=== PATIENT | female | born 1995 | race Caucasian/White ===

== ENCOUNTER 2017-12-17 19:32 | Emergency (ER) | payer OTHER ==
[2017-12-17 21:52] LABS: Urine Blood NEGATIVE (NEG); Urine Glucose NEGATIVE (NEG); Urine Protein NEGATIVE (NEG); Urine Specific Gravity >1.030 (1.005-1.030)
[2017-12-17 21:56] LABS: Urine Bacteria <20 /HPF (<20); Urine Culture Reflex Order NOT NEEDED; Urine Mucus 2+ /HPF (NONE SEEN); Urine RBC NONE SEEN /HPF (NONE SEEN)
--- NOTE | 2017-12-17 23:10 | ER ---
Nurse's Notes [facility] Name: Silva Campos Age: 22 yrs Sex: Female : 1995 Arrival Date: 12/17/2017 Time: 19:33 Bed 20 Private MD: Diagnosis: Lower abdominal pain, unspecified Presentation: 12/17 19:40 Presenting complaint: Patient states: Patient sharp suprapubic pain that started on the ea 12/10/17, patient reports taking Clomid and noticed symptoms started on fourth day of taking medication. "Today the pain was constant and did not go away". Transition of care: patient was not received from another setting of care. Onset of symptoms. Onset of symptoms was December 17, 2017. Care prior to arrival: None. 19:40 Method Of Arrival: Ambulatory ea 19:40 Acuity: YVONNE 3 ea Triage Assessment: 19:47 Pain: Complains of pain in left lower quadrant Pain radiates to suprapubic area and ea right lower quadrant Pain currently is 7 out of 10 on a pain scale. Quality of pain is described as "feel like contractions" Is continuous. Neuro: Level of Consciousness is awake, alert, obeys commands, Oriented to person, place, time, situation. GI: Reports lower abdominal pain, diarrhea, nausea, patient reports diarrhea one time this morning. 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 - Social history:: Smoking status: Patient/guardian denies using tobacco. Screenin:57 Abuse screen: Denies threats or abuse. Nutritional screening: No deficits noted. jd3 Tuberculosis screening: No symptoms or risk factors identified. Fall Risk None identified. Assessment: 21:23 General: Appears in no apparent distress. uncomfortable, Behavior is calm, cooperative, jd3 appropriate for age. Pain: Complains of pain in suprapubic area Quality of pain is described as aching, sharp. Neuro: Level of Consciousness is awake, alert, obeys commands, Oriented to person, place, time, situation. Cardiovascular: Heart tones S1 S2 present Capillary refill < 3 seconds Patient's skin is warm and dry. Respiratory: Airway is patent Respiratory effort is even, unlabored, Respiratory pattern is regular, symmetrical, Breath sounds are clear bilaterally. GI: Abdomen is round Bowel sounds present X 4 quads. Abd is soft Abdomen is tender to palpation in suprapubic area and left lower quadrant Reports nausea. : No signs and/or symptoms were reported regarding the genitourinary system. EENT: No signs and/or symptoms were reported regarding the EENT system. Derm: Skin is intact, Skin is dry, Skin is normal, Skin temperature is warm. Musculoskeletal: Circulation, motion, and sensation intact. Range of motion: intact in all extremities. 22:57 Reassessment: Patient appears in no apparent distress at this time. No changes from jd3 previously documented assessment. Patient and/or family updated on plan of care and expected duration. Pain level reassessed. Patient is alert, oriented x 3, equal unlabored respirations, skin warm/dry/pink. Vital Signs: 19:39 BP 126 / 85; Pulse 93; Resp 18; Temp 98.7; Pulse Ox 100% ; Weight 79.38 kg (R); Height ea 4 ft. 11 in. (149.86 cm); Pain 7/10; 22:56 BP 119 / 69; Pulse 83; Resp 17 S; Pulse Ox 97% on R/A; jd3 19:39 Body Mass Index 35.35 (79.38 kg, 149.86 cm) ea ED Course: 19:33 Patient arrived in ED. ds1 19:44 Triage completed. ea 20:53 Aaliyah Linder F[facility]-C [facility] snw 20:53 Jaquan Wiggins MD is Attending Physician. snw 21:21 Edi Perdue RN is Primary Nurse. jd3 22:37 Ultrasound completed. Patient tolerated well. cy 22:57 Patient has correct armband on for positive identification. Bed in low position. Call jd3 light in reach. Side rails up X 1. 22:58 Arm band placed on. jd3 23:28 No provider procedures requiring assistance completed. Patient did not have IV access jd3 during this emergency room visit. Administered Medications: No medications were administered Outcome: 23:09 Discharge ordered by . snw 23:29 Discharged to home ambulatory. jd3 23:29 Condition: stable 23:29 Discharge instructions given to patient, Instructed on discharge instructions, follow up and referral plans. medication usage, Demonstrated understanding of instructions, follow-up care, medications, Prescriptions given X 1. 23:29 Patient left the ED. leonel Signatures: Aaliyah Linder, HOUSEKEEPING LEAD-C HOUSEKEEPING LEAD-Csnw Esther Ferrari ds1 Cesilia Ramon RN RN ea Davies, Jonathon, RN RN jd3 Yong, Chheannith cy Corrections: (The following items were deleted from the chart) 19:54 19:40 Acuity: YVONNE 4 ea ea
--- NOTE | 2017-12-17 23:10 | EDPHYS ---
Physician Documentation [facility] Name: Silva Campos Age: 22 yrs Sex: Female : 1995 Arrival Date: 12/17/2017 Time: 19:33 Bed 20 Private MD: ED Physician Jaquan Wiggins HPI: 12/17 21:51 This 22 yrs old Female presents to ER via Ambulatory with complaints of snw Abdominal Pain - Low. 21:51 The patient presents with abdominal pain in the lower abdomen. Onset: The snw symptoms/episode began/occurred suddenly, 1 week(s) ago, and became worse today, and became persistent. The symptoms do not radiate. Associated signs and symptoms: Pertinent positives: denies vomiting, fever, bleeding. The symptoms are described as crampy, sharp. Severity of pain: At its worst the pain was moderate. The patient has not experienced similar symptoms in the past. The patient has not recently seen a physician. pt taking Clomid, last taken three years ago. Symptoms not the same as the past episode. 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 - Social history:: Smoking status: Patient/guardian denies using tobacco. ROS: 21:49 Constitutional: Negative for fever, chills, and weight loss, Eyes: Negative for injury, snw pain, redness, and discharge, ENT: Negative for injury, pain, and discharge, Neck: Negative for injury, pain, and swelling, Cardiovascular: Negative for chest pain, palpitations, and edema, Respiratory: Negative for shortness of breath, cough, wheezing, and pleuritic chest pain, Abdomen/GI: Negative for nausea, vomiting, diarrhea, and constipation, + lower abdominal pain Back: Negative for injury and pain, : Negative for injury, bleeding, discharge, and swelling, MS/Extremity: Negative for injury and deformity, Skin: Negative for injury, rash, and discoloration, Neuro: Negative for headache, weakness, numbness, tingling, and seizure. Exam: 21:49 Constitutional: This is a well developed, well nourished patient who is awake, alert, snw and in no acute distress. Head/Face: Normocephalic, atraumatic. Eyes: Pupils equal round and reactive to light, extra-ocular motions intact. Lids and lashes normal. Conjunctiva and sclera are non-icteric and not injected. Cornea within normal limits. Periorbital areas with no swelling, redness, or edema. ENT: Nares patent. No nasal discharge, no septal abnormalities noted. Tympanic membranes are normal and external auditory canals are clear. Oropharynx with no redness, swelling, or masses, exudates, or evidence of obstruction, uvula midline. Mucous membranes moist. Neck: Trachea midline, no thyromegaly or masses palpated, and no cervical lymphadenopathy. Supple, full range of motion without nuchal rigidity, or vertebral point tenderness. No Meningismus. Chest/axilla: Normal chest wall appearance and motion. Nontender with no deformity. No lesions are appreciated. Cardiovascular: Regular rate and rhythm with a normal S1 and S2. No gallops, murmurs, or rubs. Normal PMI, no JVD. No pulse deficits. Respiratory: Lungs have equal breath sounds bilaterally, clear to auscultation and percussion. No rales, rhonchi or wheezes noted. No increased work of breathing, no retractions or nasal flaring. Back: No spinal tenderness. No costovertebral tenderness. Full range of motion. Skin: Warm, dry with normal turgor. Normal color with no rashes, no lesions, and no evidence of cellulitis. MS/ Extremity: Pulses equal, no cyanosis. Neurovascular intact. Full, normal range of motion. Neuro: Awake and alert, GCS 15, oriented to person, place, time, and situation. Cranial nerves II-XII grossly intact. Motor strength 5/5 in all extremities. Sensory grossly intact. Cerebellar exam normal. Normal gait. 21:49 Abdomen/GI: Inspection: obese Bowel sounds: normal, Palpation: mild abdominal tenderness, moderate abdominal tenderness, in the suprapubic area, right lower quadrant and left lower quadrant. Vital Signs: 19:39 BP 126 / 85; Pulse 93; Resp 18; Temp 98.7; Pulse Ox 100% ; Weight 79.38 kg (R); Height ea 4 ft. 11 in. (149.86 cm); Pain 7/10; 22:56 BP 119 / 69; Pulse 83; Resp 17 S; Pulse Ox 97% on R/A; jd3 19:39 Body Mass Index 35.35 (79.38 kg, 149.86 cm) ea MDM: 20:54 Patient medically screened. snw 23:10 Data reviewed: vital signs, nurses notes. Data interpreted: Pulse oximetry: on room air snw is 97 %. Interpretation: normal. Counseling: I had a detailed discussion with the patient and/or guardian regarding: the historical points, exam findings, and any diagnostic results supporting the discharge/admit diagnosis, lab results, radiology results, the need for outpatient follow up, to return to the emergency department if symptoms worsen or persist or if there are any questions or concerns that arise at home. Special discussion: Based on the history and exam findings, there is no indication for further emergent testing or inpatient evaluation. I discussed with the patient/guardian the need to see the OB Gyne specialist for further evaluation of the symptoms. I discussed with the patient/guardian the need to see the primary care provider for further evaluation of the symptoms. 12/17 20:54 Order name: Urine Microscopic Only snw 12/17 21:45 Order name: Urine Dipstick--Ancillary (enter results) [facility] 12/17 21:45 Order name: Urine --Ancillary (enter results) [facility] 12/17 21:52 Order name: Urine --Ancillary; Complete Time: 21:56 EDMS 12/17 21:52 Order name: Urine Dipstick-Ancillary; Complete Time: 21:56 EDMS 12/17 21:56 Order name: Urine Microscopic Only; Complete Time: 21:57 EDMS 12/17 20:54 Order name: Urine Test (obtain specimen); Complete Time: 21:44 snw 12/17 20:54 Order name: Urine Dipstick-Ancillary (obtain specimen); Complete Time: 21:44 snw 12/17 21:48 Order name: US Transvaginal Study (Probe) snw Administered Medications: No medications were administered Disposition: 12/18 06:20 Co-signature as Attending Physician, Jaquan Wiggins MD. Disposition: 12/17/17 23:09 Discharged to Home. Impression: Lower abdominal pain, unspecified. - Condition is Stable. - Discharge Instructions: Abdominal Pain, Women. - Prescriptions for Bentyl 20 mg Oral Tablet - take 1 tablet by ORAL route every 6 hours As needed; 20 tablet. - Medication Reconciliation Form, Thank You Letter, Antibiotic Education, Prescription Opioid Use form. - Follow up: Private Physician; When: 2 - 3 days; Reason: Recheck today's complaints, Continuance of care, Re-evaluation by your physician. Follow up: Emergency Department; When: As needed; Reason: Worsening of condition. Signatures: Dispatcher [employer] EDMS Aaliyah Linder, LABOR AND DELIVERY REGISTERED NURSE-C LABOR AND DELIVERY REGISTERED NURSE-Csnw Cesilia Ramon, RN RN Jaquan Carrasquillo MD MD gs Davies, Jonathon RN RN jd3
--- NOTE | 2017-12-18 09:27 | RAD REPORT ---
EXAM DESCRIPTION: US - Transvaginal Study Probe - 12/17/2017 10:33 pm CLINICAL HISTORY: Abdominal pain, pelvic pain Preliminary findings provided at the time of the study. COMPARISON: None. TECHNIQUE: Endovaginal sonography was performed. FINDINGS: Endometrium is 8 mm in thickness. No endometrial mass or polyp identifiable. Uterus is 8.2 x 4.3 x 3.8 cm. No solid mass of the myometrium. Along the anterior cervix there is a 15 millimeter anechoic cyst identified. This is believed to be a large nabothian cyst. This is not felt to be of ac [place] clinical significance. Both ovaries are identified. Right ovary is 2.6 x 0.9 x 2.1 cm. Left ovary is 3.3 x 2.9 x 2.6 cm. Lef t ovary is enlarged by a 3.3 centimeter thin-walled anechoic cyst. Doppler evaluation shows blood moy w in the bilateral ovarian stroma. Torsion is not suspected. No adnexal mass or free fluid. IMPRESSION: Left ovary contains a 3.3 centimeter benign-appearing cyst. Blood flow is demonstrated in both ovaries. Torsion is not suspected.
== END 2017-12-17 23:29 | disposition home or self-care (01) ==
LOC: ER 19:32
DX: Z91.040 Latex allergy status; R10.30 Lower abdominal pain, unspecified
CPT/HCPCS: 76830; 81003; 81015; 81025; 99282

== ENCOUNTER 2018-01-15 16:34 | Emergency (ER) | payer OTHER ==
[2018-01-15 17:59] LABS: Urine Bacteria <20 /HPF (<20); Urine RBC <5 /HPF (NONE SEEN)
[2018-01-15 18:00] LABS: Urine Amorphous Sediment 2+ /HPF (NONE SEEN); Urine Culture Reflex Order NOT NEEDED
[2018-01-15] MEDS ORDERED: METOCLOPRAMIDE 10 MG/2mL INJ ONE (18:07)
[2018-01-15] MEDS ORDERED: DEXAMETHASONE 10 MG/ML VIAL ONE (18:07)
[2018-01-15] MEDS ORDERED: NA CHLORIDE 0.9% 1,000 ML ONE (18:08)
[2018-01-15] MEDS ORDERED: DIPHENHYDRAMINE 50 MG/ML VIAL ONE (18:08)
[2018-01-15 18:32] LABS: Absolute Lymphocytes (CBC) 2.3 K/uL (0.7-4.9); Absolute Monocytes 0.6 K/uL (0.1-1.3); Absolute Neutrophil 5.6 K/uL (1.8-8.0); Basophils % 0.6 % (0-1.3); Eosinophils % 0.7 % (0-4.4); Lymphocytes % 26.1 % (15.3-44.8); MCH 30.3 pg (27.0-35.0); MCV 89.6 fL (80-100); MPV 9.1 fL (7.6-11.3); Monocytes % 7.4 % (3.3-12.3); RBC Red Blood Cell Count 4.35 M/uL (3.86-4.86)
[2018-01-15 18:41] LABS: Protime INR 0.96
[2018-01-15 18:59] LABS: BUN Blood Urea Nitrogen 15 mg/dL (6-20); Bicarbonate 28 mEq/L (21-31); Glucose Level 115 mg/dL (65-120); Potassium 3.9 mEq/L (3.6-5.0); Sodium Level 138 mEq/L (135-145)
[2018-01-15 19:12] LABS: Urine Blood NEGATIVE (NEG); Urine Glucose NEGATIVE (NEG); Urine Protein NEGATIVE (NEG); Urine Specific Gravity 1.025 (1.005-1.030); Urine pH 7.5 (5.0-7.0)
--- NOTE | 2018-01-15 19:53 | EDPHYS ---
Physician Documentation [facility] Name: Silva Campos Age: 23 yrs Sex: Female : 1995 Arrival Date: 01/15/2018 Time: 17:01 Bed 5 Private MD: ED Physician Yusuf Guillaume HPI: 01/15 17:30 This 23 yrs old Female presents to ER via Ambulatory with complaints of SHARP cp PAIN ON LEFT SIDE OF HEAD. 17:30 The patient complains of pain to the left latter-day and left temporal area. cp 17:30 The patient describes the headache as sharp. Onset: The symptoms/episode began/occurred cp 5 day(s) ago. Associated signs and symptoms: Pertinent positives: Photophobia Pertinent negatives: altered mental status, fever, neck stiffness, sinus congestion, sinus tenderness, vomiting, weakness, vertigo. Severity of symptoms: in the emergency department the pain is unchanged, despite home interventions. Headache History: The patient has had previous headaches and this one is different than previous episodes, and this one is less severe than previous episodes. Patient reports she was referred to ED from [place] today after having normal head CT. 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 - Social history:: Smoking status: Patient/guardian denies using tobacco. ROS: 17:42 Constitutional: Negative for body aches, chills, fever, poor PO intake. cp 17:42 Eyes: Negative for injury, pain, redness, and discharge. cp 17:42 ENT: Negative for drainage from ear(s), ear pain, rhinorrhea, sore throat, difficulty swallowing, difficulty handling secretions, hoarseness. 17:42 Cardiovascular: Negative for chest pain, edema, palpitations. 17:42 Respiratory: Negative for cough, shortness of breath, wheezing. 17:42 Abdomen/GI: Negative for abdominal pain, vomiting, diarrhea, constipation. 17:42 Back: Negative for pain at rest, pain with movement. 17:42 : Negative for urinary symptoms. 17:42 Skin: Negative for cellulitis, rash. 17:42 Neuro: Positive for headache, Negative for altered mental status, weakness. 17:42 All other systems are negative. Exam: 17:48 Constitutional: The patient appears in no acute distress, alert, awake, non-toxic, well cp developed, well nourished. 17:48 Head/face: Noted is no obvious of injury or deformity except tenderness, that is mild, cp of the left latter-day, left temporal area and left occipital area, Sinus tenderness, is not appreciated. 17:48 Eyes: Periorbital structures: appear normal, Pupils: equal, round, and reactive to light and accomodation, Extraocular movements: intact throughout, Conjunctiva: normal, no exudate, no injection, Sclera: no appreciated abnormality, Lids and lashes: appear normal, bilaterally, Visual flowers: are intact. 17:48 ENT: External ear(s): are unremarkable, Ear canal(s): are normal, clear, TM's: bulging, is not appreciated, bilaterally, dullness, bilaterally, erythema, is not appreciated, bilaterally, Nose: is normal, Mouth: Lips: moist, Oral mucosa: pink and intact, moist, Posterior pharynx: is normal, airway is patent, no erythema, no exudate, Dental exam: normal, no dental caries, no fractured teeth, no gum swelling, no missing teeth, no pain, Voice: is normal. 17:48 Neck: External neck: is normal, ROM/movement: is normal, is supple, without pain, no range of motions limitations, no meningismus, no nuchal rigidity, Lymph nodes: no appreciated lymphadenopathy. 17:48 Chest/axilla: Inspection: normal, Palpation: is normal, no crepitus, no tenderness. 17:48 Cardiovascular: Rate: normal, Rhythm: regular, JVD: is not appreciated. 17:48 Respiratory: the patient does not display signs of respiratory distress, Respirations: normal, no use of accessory muscles, no retractions, no splinting, no tachypnea, labored breathing, is not present, Breath sounds: are clear throughout, no decreased breath sounds, no stridor, no wheezing. 17:48 Abdomen/GI: Inspection: abdomen appears normal, Bowel sounds: active, all quadrants, Palpation: abdomen is soft and non-tender, in all quadrants, rebound tenderness, is not appreciated, voluntary guarding, is not appreciated, involuntary guarding, is not appreciated. 17:48 Back: pain, is absent, ROM is normal. 17:48 Skin: cellulitis, is not appreciated, no rash present. 17:48 Neuro: Orientation: to person, place \T\ time. Mentation: lucid, able to follow commands, Cerebellar function: is grossly normal, Motor: moves all fours, strength is normal, Sensation: no obvious gross deficits. Vital Signs: 17:09 BP 126 / 74; Pulse 75; Resp 16; Temp 98.4; Pulse Ox 99% on R/A; Weight 77.11 kg; Height hb 4 ft. 11 in. (149.86 cm); Pain 8/10; 18:06 BP 102 / 67; Pulse 59; Resp 17; Pulse Ox 100% on R/A; tw2 19:11 BP 95 / 59; Pulse 55; Resp 18; Pulse Ox 98% on R/A; tl2 20:15 BP 110 / 74; Pulse 88; Resp 18; Pulse Ox 100% on R/A; Pain 5/10; tl2 17:09 Body Mass Index 34.34 (77.11 kg, 149.86 cm) hb MDM: 17:25 Patient medically screened. cp 18:00 Differential diagnosis: cluster headache, meningitis, migraine, neoplasm, sinusitis, cp subarachnoid bleed, subdural hematoma, temporal arteritis, tension headache. 19:25 Data reviewed: vital signs, nurses notes, lab test result(s). cp 19:48 Counseling: I had a detailed discussion with the patient and/or guardian regarding: the cp historical points, exam findings, and any diagnostic results supporting the discharge/admit diagnosis, lab results, the need for outpatient follow up, a neurologist, to return to the emergency department if symptoms worsen or persist or if there are any questions or concerns that arise at home. 19:48 Response to treatment: improved, and as a result, I will discharge patient. cp 01/15 17:19 Order name: Urine Microscopic Only; Complete Time: 18:58 jb1 01/15 18:58 Interpretation: Normal except: SQEPI 10-20; AMORPH 2+. cp 01/15 17:19 Order name: Urine Culture jb 01/15 17:21 Order name: Urine Dipstick--Ancillary (enter results); Complete Time: 19:17 iw 01/15 19:17 Interpretation: Normal except: UPH 7.5; UESTR TRACE. cp 01/15 17:21 Order name: Urine --Ancillary (enter results); Complete Time: 19:17 iw 01/15 17:50 Order name: CBC with Diff; Complete Time: 18:58 cp 01/15 18:58 Interpretation: Reviewed. cp 01/15 17:50 Order name: BMP; Complete Time: 19:17 cp 01/15 19:18 Interpretation: Reviewed. cp 01/15 17:50 Order name: PT-INR; Complete Time: 18:58 cp 01/15 17:50 Order name: Ptt, Activated; Complete Time: 18:58 cp 01/15 18:26 Order name: IV Start; Complete Time: 18:26 tw2 Administered Medications: 18:20 Drug: Benadryl 25 mg Route: IVP; Site: left antecubital; tw2 18:53 Follow up: Response: No adverse reaction; Pain is unchanged, physician notified tw2 18:22 Drug: Decadron - Dexamethasone 10 mg Route: IVP; Site: left antecubital; tw2 18:54 Follow up: Response: No adverse reaction tw2 18:24 Drug: Reglan 10 mg Route: IVP; Site: left antecubital; tw2 18:54 Follow up: Response: No adverse reaction tw2 18:25 Drug: NS 0.9% 1000 ml Route: IV; Rate: 1 bolus; Site: left antecubital; tw2 20:18 Follow up: IV Status: Completed infusion; IV Intake: 1000ml tl2 Disposition: 21:00 Chart complete. cp Disposition: 01/15/18 19:52 Discharged to Home. Impression: Headache. - Condition is Stable. - Discharge Instructions: General Headache Without Cause. - Prescriptions for Fiorinal 50- 325-40 mg Oral Capsule - take 1 capsule by ORAL route every 4 hours As needed - not to exceed 6 capsules per day; 20 capsule. promethazine 25 mg Oral Tablet - take 1 tablet by ORAL route every 6 hours As needed; 20 tablet. - Medication Reconciliation Form, Thank You Letter, Antibiotic Education, Prescription Opioid Use form. - Follow up: Josesito Landa MD; When: 2 - 3 days; Reason: Recheck today's complaints. - Problem is new. - Symptoms have improved. Addendum: 01/30/2018 19:55 Co-signature as Attending Physician, Yusuf Guillaume MD I agree with the assessment and k dr plan of care. Signatures: Dispatcher [employer] EDAK Yusuf Guillaume MD MD [facility] Jamaal Herbert PA PA cp Isidra Jones RN RN Brianna Rodriguez RN RN 2 Beth Berg RN RN tl2 Corrections: (The following items were deleted from the chart) 01/15 20:18 19:52 01/15/2018 19:52 Discharged to Home. Impression: Headache. Condition is Stable. tl2 Forms are Medication Reconciliation Form, Thank You Letter, Antibiotic Education, Prescription Opioid Use. Follow up: Josesito Landa; When: 2 - 3 days; Reason: Recheck today's complaints. Problem is new. Symptoms have improved. cp 01/16 19:55 17:42 Constitutional: Negative for body aches, chills, fever, poor PO intake, cp cp 19:55 17:42 Eyes: Negative for injury, pain, redness, and discharge, cp cp 19:55 17:42 Cardiovascular: Negative for chest pain, edema, palpitations, cp cp 19:55 17:42 Respiratory: Negative for cough, shortness of breath, wheezing, cp cp 19:55 17:42 Neck: Negative for pain with movement, pain at rest, stiffness, cp cp 19:55 17:42 ENT: Negative for drainage from ear(s), ear pain, rhinorrhea, sore throat, cp difficulty swallowing, difficulty handling secretions, cp 19:55 17:42 Abdomen/GI: Negative for abdominal pain, vomiting, diarrhea, constipation, cp cp 19:55 17:42 Back: Negative for pain at rest, pain with movement, cp cp 19:55 17:42 Skin: Negative for cellulitis, rash, cp cp 19:55 17:42 Neuro: Positive for headache, Negative for altered mental status, weakness, cp cp 19:55 17:42 All other systems are negative, cp cp
--- NOTE | 2018-01-15 19:53 | ER ---
Nurse's Notes [facility] Name: Silva Campos Age: 23 yrs Sex: Female : 1995 Arrival Date: 01/15/2018 Time: 17:01 Bed 5 Private MD: Diagnosis: Headache Presentation: 01/15 17:07 Presenting complaint: Patient states: Left sided headache, dizziness, and hb photosensitivity x 5 days. Denies N/V/fever. Transition of care: patient was not received from another setting of care. Onset of symptoms is unknown. Care prior to arrival: Medication(s) given: Motrin, at 1100 today. 17:07 Method Of Arrival: Ambulatory hb 17:07 Acuity: YVONNE 3 hb 17:12 Initial Sepsis Screen: Does the patient meet any 2 criteria? No. Patient's initial tw2 sepsis screen is negative. Does the patient have a suspected source of infection? No. Patient's initial sepsis screen is negative. 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 - Social history:: Smoking status: Patient/guardian denies using tobacco. Screenin:12 Abuse screen: Denies threats or abuse. Nutritional screening: No deficits noted. tw2 Tuberculosis screening: No symptoms or risk factors identified. Fall Risk None identified. Assessment: 17:20 Reassessment: pt states" i was just at [facility], they did a CT which was negative, but tw2 they couldn't do blood work, and they said it was not an ear infection". 17:20 General: Appears in no apparent distress. obese, well groomed, Behavior is calm, tw2 cooperative, appropriate for age. Pain: Complains of pain in left temporal area, left ear and left cheek. Neuro: Level of Consciousness is awake, alert, obeys commands, Oriented to person, place, time, situation. Neuro: Reports headache in right temportal, down around right ear and right jaw, pt states she does wear a mouth guard at night for grinding. photophobia. Cardiovascular: Denies chest pain, shortness of breath, Heart tones S1 S2 Capillary refill < 3 seconds Patient's skin is warm and dry. Respiratory: Airway is patent Respiratory effort is even, unlabored, Respiratory pattern is regular, symmetrical, Breath sounds are clear bilaterally. GI: No signs and/or symptoms were reported involving the gastrointestinal system. Abdomen is round obese, Bowel sounds present X 4 quads. : No signs and/or symptoms were reported regarding the genitourinary system. EENT: No signs and/or symptoms were reported regarding the EENT system. Derm: No signs and/or symptoms reported regarding the dermatologic system. Musculoskeletal: Range of motion: intact in all extremities. 18:06 Reassessment: Patient appears in no apparent distress at this time. No changes from tw2 previously documented assessment. Patient and/or family updated on plan of care and expected duration. Pain level reassessed. Patient is alert, oriented x 3, equal unlabored respirations, skin warm/dry/pink. 18:53 Reassessment: Patient appears in no apparent distress at this time. Patient and/or tw2 family updated on plan of care and expected duration. Pain level reassessed. Patient is alert, oriented x 3, equal unlabored respirations, skin warm/dry/pink. provider notified. Patient states symptoms have not improved. 19:46 Reassessment: Patient appears in no apparent distress at this time. Patient and/or tl2 family updated on plan of care and expected duration. Pain level reassessed. Patient is alert, oriented x 3, equal unlabored respirations, skin warm/dry/pink. Pt ambulatory to restroom, awaiting further orders. 20:15 Reassessment: Patient appears in no apparent distress at this time. Patient and/or tl2 family updated on plan of care and expected duration. Pain level reassessed. Patient is alert, oriented x 3, equal unlabored respirations, skin warm/dry/pink. Pt verbalized understanding of discharge instructions, need for follow up and prescription usage Patient states feeling better. Vital Signs: 17:09 BP 126 / 74; Pulse 75; Resp 16; Temp 98.4; Pulse Ox 99% on R/A; Weight 77.11 kg; Height hb 4 ft. 11 in. (149.86 cm); Pain 8/10; 18:06 BP 102 / 67; Pulse 59; Resp 17; Pulse Ox 100% on R/A; tw2 19:11 BP 95 / 59; Pulse 55; Resp 18; Pulse Ox 98% on R/A; tl2 20:15 BP 110 / 74; Pulse 88; Resp 18; Pulse Ox 100% on R/A; Pain 5/10; tl2 17:09 Body Mass Index 34.34 (77.11 kg, 149.86 cm) hb ED Course: 17:01 Patient arrived in ED. al2 17:08 Triage completed. hb 17:09 Arm band placed on left wrist. hb 17:12 Bed in low position. Call light in reach. Pulse ox on. NIBP on. tw2 17:18 Urine collected: clean catch specimen, cloudy, sommer colored. jb1 17:19 Brianna Rodriguez RN is Primary Nurse. tw2 17:24 Jamaal Herbert PA is PHCP. cp 17:24 Yusuf Guillaume MD is Attending Physician. cp 18:15 Missed attempt(s): 22 gauge in right antecubital area. per Karina Lyle. Bleeding tw2 controlled, band aid applied, catheter tip intact. 18:20 No provider procedures requiring assistance completed. Inserted saline lock: 22 gauge tw2 in left antecubital area, using aseptic technique. Blood collected. 19:00 Report given to MADELAINE Jacobson. tw2 19:52 Josesito Landa MD is Referral Physician. cp 20:15 IV discontinued, intact, bleeding controlled, No redness/swelling at site. Pressure tl2 dressing applied. Administered Medications: 18:20 Drug: Benadryl 25 mg Route: IVP; Site: left antecubital; tw2 18:53 Follow up: Response: No adverse reaction; Pain is unchanged, physician notified tw2 18:22 Drug: Decadron - Dexamethasone 10 mg Route: IVP; Site: left antecubital; tw2 18:54 Follow up: Response: No adverse reaction tw2 18:24 Drug: Reglan 10 mg Route: IVP; Site: left antecubital; tw2 18:54 Follow up: Response: No adverse reaction tw2 18:25 Drug: NS 0.9% 1000 ml Route: IV; Rate: 1 bolus; Site: left antecubital; tw2 20:18 Follow up: IV Status: Completed infusion; IV Intake: 1000ml tl2 Intake: 20:18 IV: 1000ml; Total: 1000ml. tl2 Outcome: 19:52 Discharge ordered by . cp 20:15 Discharged to home ambulatory. tl2 20:15 Condition: stable 20:15 Discharge instructions given to patient, Instructed on discharge instructions, follow up and referral plans. medication usage, Demonstrated understanding of instructions, follow-up care, medications, Prescriptions given X 2. 20:18 Patient left the ED. tl2 Addendum: 01/22/2018 07:53 Addendum: Culture Results: Positive urine culture. Patient was not prescribed i w antibiotics at discharge. Report given to JOHNNY for further evaluation and then to pest control chemical technician for follow up with patient. Phone call Attempt #1 phone number not in service. Signatures: Salbador Patel jb1 Nadine Garsia, RN RN Jamaal Herbert PA PA cp Baxter, Heather, RN RN Brianna Rodriguez RN RN tw2 Beth Berg RN RN tl2 Aria Ng2
== END 2018-01-15 20:18 | disposition home or self-care (01) ==
LOC: ER 16:34
DX: R51 Headache (principal); Z91.040 Latex allergy status
CPT/HCPCS: 36415; 80048; 81003; 81015; 81025; 85025; 85610; 85730; 87077; 87086; 87088; 87186; 96361; 96374; 96375; 99284; J1100; J2765; J7030

== ENCOUNTER 2019-08-21 15:01 | Emergency (ER) | payer OTHER ==
--- NOTE | 2019-08-21 16:32 | RAD REPORT ---
EXAM DESCRIPTION: RAD - Chest Pa And Lat (2 Views) - 08/21/2019 3:52 pm CLINICAL HISTORY: Cough;Fever COMPARISON: Portable exam June 2017 TECHNIQUE: PA and lateral views of the chest were obtained. FINDINGS: The lungs are clear. Heart size is normal and central vasculature is within normal limit s. No pleural effusion or pneumothorax seen. No acute bone finding. Left convex upper thoracic scol iotic curvature unchanged. No aortic abnormality. No significant overall change. IMPRESSION: No acute cardiopulmonary process.
[2019-08-21] MEDS ORDERED: METHYLPREDNISOLONE 125 MG INJ ONE (16:44)
--- NOTE | 2019-08-21 16:47 | ER ---
Nurse's Notes [facility] Name: Silva Campos Age: 24 yrs Sex: Female : 1995 Arrival Date: 08/21/2019 Time: 15:03 Bed 12 Private MD: Diagnosis: Bronchitis, not specified as acute or chronic Presentation: 08/21 15:12 Presenting complaint: Patient states: congestion, cough since last week. Thurs pale and sv nauseous, went away and got worse again Sat. Fever Tmax 101.7 and chest pain with non-productive cough. Transition of care: patient was not received from another setting of care. Onset of symptoms was July 2019. Risk Assessment: Do you want to hurt yourself or someone else? Patient reports no desire to harm self or others. Care prior to arrival: None. 15:12 Method Of Arrival: Ambulatory sv 15:12 Acuity: YVONNE 3 sv 15:15 Initial Sepsis Screen: Does the patient meet any 2 criteria? HR > 90 bpm. No. Patient's sv initial sepsis screen is negative. Does the patient have a suspected source of infection? No. Patient's initial sepsis screen is negative. Triage Assessment: 15:14 General: Appears in no apparent distress. uncomfortable, well developed, Behavior is sv calm, cooperative, appropriate for age. General: Reports fever for 1-2 days. Pain: Complains of pain in chest. Neuro: Level of Consciousness is awake, alert, obeys commands, Oriented to person, place, time, situation, Moves all extremities. Full function Gait is steady. Respiratory: Reports cough that is non-productive, pain with cough Airway is patent Respiratory effort is even, unlabored, Respiratory pattern is regular, symmetrical. Derm: Skin is pink, warm \T\ dry. Historical: - Allergies: 15:14 Latex, Natural Rubber (Hives); sv - PMHx: 15:14 Irregular heart rate; sv - PSHx: 15:14 wisdom teeth removed; ; Tonsillectomy; Cholecystectomy; sv - Immunization history:: Adult Immunizations up to date. - Ebola Screening: : No symptoms or risks identified at this time. - Social history:: Smoking status: Patient/guardian denies using tobacco. Screenin:28 Abuse screen: Denies threats or abuse. Denies injuries from another. Nutritional sv screening: No deficits noted. Tuberculosis screening: No symptoms or risk factors identified. Fall Risk None identified. Assessment: 15:27 Reassessment: Patient appears in no apparent distress at this time. No changes from sv previously documented assessment. 16:50 Reassessment: Patient appears in no apparent distress at this time. No changes from sv previously documented assessment. Patient and/or family updated on plan of care and expected duration. Pain level reassessed. Patient is alert, oriented x 3, equal unlabored respirations, skin warm/dry/pink. Pt waiting IM shot time before discharge. Vital Signs: 15:14 BP 153 / 82; Pulse 113; Resp 18; Temp 98.2; Pulse Ox 100% ; Weight 84.82 kg; Height 4 sv ft. 11 in. (149.86 cm); 15:14 Body Mass Index 37.77 (84.82 kg, 149.86 cm) sv ED Course: 15:03 Patient arrived in ED. mr 15:07 Savanna Talley FNP-C is [facility]. kb 15:07 Yusuf Guillaume MD is Attending Physician. kb 15:14 Triage completed. sv 15:14 Arm band placed on. sv 15:15 Flu and/or RSV swab sent to lab. sv 15:28 Awaiting lab results. sv 15:28 Patient has correct armband on for positive identification. Bed in low position. Door sv closed. 15:48 Ana Thornton, RN is Primary Nurse. sv 15:48 Awaiting for x-ray. sv 15:51 Chest Pa And Lat (2 Views) XRAY In Process Unspecified. EDMS 16:13 Awaiting radiology results. sv 16:51 No provider procedures requiring assistance completed. Patient did not have IV access sv during this emergency room visit. 18:55 Primary Nurse role handed off by Ana Thornton, MADELAINE sv Administered Medications: 16:45 Drug: SOLU-Medrol 125 mg Route: IM; Site: right gluteus; sv 17:09 Follow up: Response: No adverse reaction sv Outcome: 16:46 Discharge ordered by . kb 17:09 Discharged to home ambulatory. sv 17:09 Condition: stable 17:09 Discharge instructions given to patient, Instructed on discharge instructions, follow up and referral plans. medication usage, Demonstrated understanding of instructions, follow-up care, medications, Prescriptions given X 2. 17:09 Patient left the ED. sv Signatures: Dispatcher [employer] EDMS Savanna Talley, TERRITORY SERVICE REPRESENTATIVE-C TERRITORY SERVICE REPRESENTATIVE-Ana Lorenzo RN RN sv Ana Cohn Corrections: (The following items were deleted from the chart) 15:14 15:12 Acuity: YVONNE 4 sv sv 15:15 15:12 Presenting complaint: Patient states: congestion, cough since last week. Thurs sv pale and nauseous, went away and got worse again Sat. Fever Tmax 101.7. sv 15:15 15:12 Presenting complaint: Patient states: congestion, cough since last week. Thurs sv pale and nauseous, went away and got worse again Sat. Fever Tmax 101.7 and chest pain with cough. sv 15:16 15:14 BP 153 / 82; Pulse 113bpm; Resp 18bpm; Pulse Ox 100%; Temp 98.2F; sv sv
--- NOTE | 2019-08-21 16:47 | EDPHYS ---
Physician Documentation [facility] Name: Silva Campos Age: 24 yrs Sex: Female : 1995 Arrival Date: 08/21/2019 Time: 15:03 Bed 12 Private MD: ED Physician Yusuf Guillaume HPI: 08/21 16:42 This 24 yrs old Female presents to ER via Ambulatory with complaints of kb Cough, Fever. 16:42 The patient or guardian reports cough, that is intermittent, described as moderate, kb with no sputum, flu symptoms, low-grade fever, myalgias. Onset: The symptoms/episode began/occurred 1 week(s) ago. Severity of symptoms: At their worst the symptoms were mild, moderate, in the emergency department the symptoms are unchanged. Modifying factors: The symptoms are alleviated by nothing, the symptoms are aggravated by nothing. Associated signs and symptoms: Pertinent positives: fever, rhinorrhea. The patient has not experienced similar symptoms in the past. The patient has not recently seen a physician. Historical: - Allergies: 15:14 Latex, Natural Rubber (Hives); sv - PMHx: 15:14 Irregular heart rate; sv - PSHx: 15:14 wisdom teeth removed; ; Tonsillectomy; Cholecystectomy; sv - Immunization history:: Adult Immunizations up to date. - Ebola Screening: : No symptoms or risks identified at this time. - Social history:: Smoking status: Patient/guardian denies using tobacco. ROS: 16:41 ENT: Negative for injury, pain, and discharge, Neck: Negative for injury, pain, and kb swelling, Cardiovascular: Negative for chest pain, palpitations, and edema, Abdomen/GI: Negative for abdominal pain, nausea, vomiting, diarrhea, and constipation, Back: Negative for injury and pain, : Negative for injury, bleeding, discharge, and swelling, MS/Extremity: Negative for injury and deformity, Skin: Negative for injury, rash, and discoloration, Neuro: Negative for headache, weakness, numbness, tingling, and seizure. 16:41 Constitutional: Positive for fever, malaise. 16:41 Respiratory: Positive for cough, Negative for dyspnea on exertion, hemoptysis, orthopnea, pleurisy, shortness of breath, sputum production, wheezing. Exam: 16:40 Constitutional: This is a well developed, well nourished patient who is awake, alert, kb and in no acute distress. Head/Face: Normocephalic, atraumatic. Neck: Trachea midline, no thyromegaly or masses palpated, and no cervical lymphadenopathy. Supple, full range of motion without nuchal rigidity, or vertebral point tenderness. No Meningismus. Chest/axilla: Normal chest wall appearance and motion. Nontender with no deformity. No lesions are appreciated. Cardiovascular: Regular rate and rhythm with a normal S1 and S2. No gallops, murmurs, or rubs. Normal PMI, no JVD. No pulse deficits. Respiratory: Lungs have equal breath sounds bilaterally, clear to auscultation and percussion. No rales, rhonchi or wheezes noted. No increased work of breathing, no retractions or nasal flaring. Abdomen/GI: Soft, non-tender, with normal bowel sounds. No distension or tympany. No guarding or rebound. No evidence of tenderness throughout. Skin: Warm, dry with normal turgor. Normal color with no rashes, no lesions, and no evidence of cellulitis. MS/ Extremity: Pulses equal, no cyanosis. Neurovascular intact. Full, normal range of motion. Neuro: Awake and alert, GCS 15, oriented to person, place, time, and situation. Cranial nerves II-XII grossly intact. Motor strength 5/5 in all extremities. Sensory grossly intact. Cerebellar exam normal. Normal gait. 16:40 ENT: External ear(s): are unremarkable, Ear canal(s): are normal, TM's: fluid levels, on the right, Nose: is normal, Mouth: is normal, Posterior pharynx: is normal. Vital Signs: 15:14 BP 153 / 82; Pulse 113; Resp 18; Temp 98.2; Pulse Ox 100% ; Weight 84.82 kg; Height 4 sv ft. 11 in. (149.86 cm); 15:14 Body Mass Index 37.77 (84.82 kg, 149.86 cm) sv MDM: 15:12 Patient medically screened. kb 16:40 Data reviewed: vital signs, nurses notes. Data interpreted: Pulse oximetry: on room air kb is 100 %. Interpretation: normal. Counseling: I had a detailed discussion with the patient and/or guardian regarding: the historical points, exam findings, and any diagnostic results supporting the discharge/admit diagnosis, lab results, radiology results, the need for outpatient follow up, a family practitioner, to return to the emergency department if symptoms worsen or persist or if there are any questions or concerns that arise at home. 08/21 15:19 Order name: Flu; Complete Time: 15:48 kb 08/21 15:19 Order name: Chest Pa And Lat (2 Views) XRAY; Complete Time: 16:37 kb Administered Medications: 16:45 Drug: SOLU-Medrol 125 mg Route: IM; Site: right gluteus; sv 17:09 Follow up: Response: No adverse reaction sv Disposition: 08/22 07:30 Co-signature as Attending Physician, Yusuf Guillaume MD I agree with the assessment and kdr plan of care. Disposition: 08/21/19 16:46 Discharged to Home. Impression: Bronchitis, not specified as acute or chronic. - Condition is Stable. - Discharge Instructions: Acute Bronchitis, [id number], Viral Respiratory Infection, [id number]. - Prescriptions for Tessalon Perles 100 mg Oral Capsule - take 1 capsule by ORAL route every 8 hours As needed; 15 capsule. Albuterol Sulfate 90 mcg/actuation - inhale 1-2 puff by INHALATION route every 4-6 hours; 1 Inhaler. - Medication Reconciliation Form, Thank You Letter, Antibiotic Education, Prescription Opioid Use, Work release form form. - Follow up: Emergency Department; When: As needed; Reason: Worsening of condition. Follow up: Private Physician; When: 2 - 3 days; Reason: Recheck today's complaints, Continuance of care, Re-evaluation by your physician. Signatures: Dispatcher [employer] Savanna Lim, STORMY-C STORMY-Ana Lorenzo RN RN Yusuf Bill MD MD [facility] Corrections: (The following items were deleted from the chart) 08/21 17:09 16:46 08/21/2019 16:46 Discharged to Home. Impression: Bronchitis, not specified as sv acute or chronic. Condition is Stable. Forms are Medication Reconciliation Form, Thank You Letter, Antibiotic Education, Prescription Opioid Use. Follow up: Emergency Department; When: As needed; Reason: Worsening of condition. Follow up: Private Physician; When: 2 - 3 days; Reason: Recheck today's complaints, Continuance of care, Re-evaluation by your physician. kb
[2019-08-21 18:47] VITALS: BP 153/82; TEMP 98.2; O2SAT 100
== END 2019-08-21 17:09 | disposition home or self-care (01) ==
LOC: ER 15:01
DX: J40 Bronchitis, not specified as acute or chronic (principal); Z91.040 Latex allergy status; Z91.048 Other nonmedicinal substance allergy status
CPT/HCPCS: 87804 ×2; 71046; 96372; 99284; J2930